=== PATIENT | male | born 1990 | race Caucasian/White ===

== ENCOUNTER 2018-11-18 22:47 | Emergency (ER) ==
[2018-11-18 22:52] VITALS: BP 141/83; TEMP 99.2; BMI 21.4
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
[2018-11-18] MEDS ORDERED: LIDOCAINE HCL 1% SDV ONE (22:58)
[2018-11-18] MEDS ORDERED: LIDOCAINE HCL 1% SDV SUBCUT STA (23:13)
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
== END 2018-11-19 00:44 | disposition home or self-care (01) ==
LOC: ED 22:47
DX: S09.93XA Unspecified injury of face, initial encounter (principal); R60.9 Edema, unspecified; Z72.0 Tobacco use; S01.81XA Laceration without foreign body of other part of head, initial encounter
CPT/HCPCS: 99282